=== PATIENT | male | born 1985 | race Caucasian/White ===

== ENCOUNTER 2017-03-15 20:26 | Emergency (ER) | payer OTHER ==
[~2017-03-15] VITALS: Ht 167.6 cm; Wt 70.0 kg
[2017-03-15 21:02] LABS: HEMATOCRIT 45.2 % (38.0-50.0); MCHC 35.6 G/DL (30.0-36.0); MCV 95.4 FL (86-99); MEAN PLAT.VOLUME 9.1 uM^3 (9.0-12.4); PLATELET COUNT 287 K/uL (156-360); RBC DIS.WIDTH-CV 12.6 % (11.8-14.6); RBC DIS.WIDTH-SD 44.6 % (39-53); RED BLOOD COUNT 4.74 M/uL (4.00-5.50); WHITE BLOOD COUNT 10.9 K/uL (4.1-10.2)
[2017-03-15 21:14] LABS: CHLORIDE 101 mEq/L (99-109); POTASSIUM 3.9 mEq/L (3.7-5.4); SODIUM 139 mEq/L (136-147)
[2017-03-15 21:16] LABS: GLUCOSE 98 mg/dL (70-99)
[2017-03-15 21:20] LABS: ALKALINE PHOSPHATASE 68 IU/L (3-129); ANION GAP 11 MEQ/L (2-14); GFR ESTIMATE (CALCULATED) > 59 mL/min/; TOTAL BILIRUBIN 0.4 mg/dL (0.0-1.0)
[2017-03-15 21:21] LABS: UREA NITROGEN (BUN) 9 mg/dL (9-23)
[2017-03-15 21:23] LABS: LIPASE 21 U/L (1.0-51.0)
[2017-03-15 21:48] LABS: C-REACTIVE PROTEIN < 1.0 MG/L (0-10)
[2017-03-15 22:04] LABS: ERTH.SED.RATE 5 MM/HR (0-15)
[2017-03-15] MEDS ORDERED: BENTYL10 MG PO (22:20)
[2017-03-15] MEDS ORDERED: PREDNISONE10 MG PO (22:28)
[2017-03-15 22:33] VITALS: BP 135/98
== END 2017-03-15 22:39 | disposition home or self-care (01) ==
LOC: EME 20:26
PROVIDERS: Physician Assistant
DX: R19.7 Diarrhea, unspecified (principal); K92.1 Melena; F17.200 Nicotine dependence, unspecified, uncomplicated
CPT/HCPCS: 74177; 80053; 83690; 85027; 85651; 86140; 99281; 99284